=== PATIENT | male | born 1995 | race African-American/Black ===

== ENCOUNTER 2019-06-22 10:31 | Emergency (ER) | payer MEDICAID ==
[~2019-06-22] VITALS: Ht 177.8 cm; Wt 72.7 kg
[2019-06-22 10:42] VITALS: BP 118/76
[2019-06-22 11:27] LABS: BASOPHILS % (AUTO) 0.7 % (0.0-2.0); EOSINOPHILS % (AUTO) 5.6 % (1.0-6.0); HEMATOCRIT 44.3 % (41-53); LYMPHOCYTES # (AUTO) 0.9 K/uL (1.0-4.8); LYMPHOCYTES % (AUTO) 20.8 % (22.0-44.0); MEAN CORPUSCULAR HEMOGLOBIN 29.3 pg (26.0-34.0); MEAN CORPUSCULAR HGB CONC 33.8 G/dL (31.0-37.0); MEAN CORPUSCULAR VOLUME 86 fL (80-100); MONOCYTES # (AUTO) 0.9 K/uL (0.1-1.0); MONOCYTES % (AUTO) 19.7 % (2.0-9.0); NEUTROPHILS # (AUTO) 2.3 K/uL (1.8-7.7); NEUTROPHILS % (AUTO) 53.2 % (40.0-70.0); PLATELET COUNT (AUTO) 225 K/uL (150-450); RED BLOOD CELL COUNT(AUTO) 5.12 MIL/uL (4.50-5.90); RED CELL DISTRIBUTION WIDTH 12.4 % (11.5-14.5)
[2019-06-22 11:42] LABS: ANION GAP 9 mmol/L (8-16); CALCIUM, TOTAL 9.1 mg/dL (8.8-10.5); CARBON DIOXIDE 28 mmol/L (22-29); CHLORIDE 104 mmol/L (98-107); CREATININE 0.91 mg/dL (0.60-1.30); GLOMERULAR FILTR. RATE CALC > 60 mL/min (>60); GLUCOSE,RANDOM 92 mg/dL (70-110); POTASSIUM 4.1 mmol/L (3.5-5.1); SODIUM SERUM 141 mmol/L (136-145); UREA NITROGEN, BLOOD 19 mg/dL (7-18)
[2019-06-22 11:54] LABS: ALANINE AMINOTRANSFERASE 24 U/L (12-78); ALBUMIN 3.9 g/dL (3.4-5.0); ALKALINE PHOSPHATASE 77 U/L (46-116); ASPARTATE AMINOTRANSFERASE 21 U/L (15-37); BILIRUBIN,TOTAL 0.4 mg/dL (0.1-1.0); TOTAL PROTEIN, SERUM 7.3 g/dL (6.4-8.2)
== END 2019-06-22 12:35 | disposition home or self-care (01) ==
LOC: EMS 10:34
DX: F20.9 Schizophrenia, unspecified (principal)
CPT/HCPCS: 36415; 80053; 85025; 99285; G0480

== ENCOUNTER 2024-05-22 06:08 | Emergency (ER) | payer MEDICARE, MEDICAID ==
[~2024-05-22] VITALS: Ht 175.3 cm; Wt 76.0 kg
[~2024-05-22 06:08] MED LIST: RISP-32 PO
[2024-05-22 06:12] VITALS: TEMP 98.5
[2024-05-22 08:05] VITALS: BP 114/77; PULSE 61; RESP 16; O2SAT 98
== END 2024-05-22 08:15 | disposition home or self-care (01) ==
LOC: EMS 06:13
DX: B86 Scabies (principal); L29.9 Pruritus, unspecified; F20.9 Schizophrenia, unspecified; Z90.49 Acquired absence of other specified parts of digestive tract; Z59.19 Other inadequate housing
CPT/HCPCS: 99281; Z7502

== ENCOUNTER 2024-07-01 03:18 | Emergency (ER) | payer MEDICARE, MEDICAID ==
[~2024-07-01] VITALS: Ht 175.3 cm; Wt 77.3 kg
[~2024-07-01 03:18] MED LIST changes: -RISP-32 PO; +RISP3TAB77 PO
[2024-07-01 03:26] VITALS: BP 108/87; PULSE 68; RESP 16; TEMP 98; O2SAT 98
[2024-07-01] MEDS ORDERED: DIPH-1243 PO (03:57)
[2024-07-01] MEDS: DiphenhydrAMINE HCL 25 MG CAPSULE PO ONE (03:59)
== END 2024-07-01 04:30 | disposition home or self-care (01) ==
LOC: EMS 03:19
DX: L29.9 Pruritus, unspecified (principal); F20.9 Schizophrenia, unspecified; Z59.19 Other inadequate housing; Z90.49 Acquired absence of other specified parts of digestive tract; Z59.00 Homelessness unspecified
CPT/HCPCS: 99282; Z7502; Z7610

== ENCOUNTER 2024-10-14 15:42 | Emergency (ER) | payer MEDICARE, MEDICAID ==
[~2024-10-14] VITALS: Ht 175.3 cm; Wt 73.1 kg
[~2024-10-14 15:42] MED LIST changes: +DIPH-1243 PO
[2024-10-14 16:44] VITALS: TEMP 98.2
[2024-10-14 19:54] LABS: BASOPHILS % (AUTO) 0.5 % (0.0-2.0); EOSINOPHILS % (AUTO) 1.6 % (1.0-6.0); HEMATOCRIT 47.7 % (41-53); HEMOGLOBIN 15.6 g/dL (13.5-17.5); LYMPHOCYTES # (AUTO) 1.8 K/uL (1.0-4.8); LYMPHOCYTES % (AUTO) 32.5 % (22.0-44.0); MEAN CORPUSCULAR HEMOGLOBIN 28.5 pg (26.0-34.0); MEAN CORPUSCULAR HGB CONC 32.7 G/dL (31.0-37.0); MEAN CORPUSCULAR VOLUME 87 fL (80-100); MONOCYTES # (AUTO) 0.5 K/uL (0.1-1.0); MONOCYTES % (AUTO) 9.4 % (2.0-9.0); NEUTROPHILS # (AUTO) 3.2 K/uL (1.8-7.7); PLATELET COUNT (AUTO) 251 K/uL (150-450); RED BLOOD CELL COUNT(AUTO) 5.47 MIL/uL (4.50-5.90); RED CELL DISTRIBUTION WIDTH 12.5 % (11.5-14.5); WHITE BLOOD COUNT (AUTO) 5.7 K/uL (4.5-11.0)
[2024-10-14 20:02] LABS: ANION GAP 4 mmol/L (8-16); CALCIUM, TOTAL 9.6 mg/dL (8.8-10.5); CARBON DIOXIDE 35 mmol/L (22-29); CHLORIDE 102 mmol/L (98-107); CREATININE 0.85 mg/dL (0.60-1.30); GLOMERULAR FILTR. RATE CALC > 60 mL/min (>60); GLUCOSE,RANDOM 96 mg/dL (70-110); POTASSIUM 3.9 mmol/L (3.5-5.1); SODIUM SERUM 141 mmol/L (136-145); UREA NITROGEN, BLOOD 14 mg/dL (7-18)
[2024-10-14 22:00] VITALS: BP 126/78; PULSE 67; RESP 19; O2SAT 100
[2024-10-14] MEDS: AMOXICILLIN TRIHYDRATE 250 MG CAPSULE PO ONE (22:11)
== END 2024-10-14 22:25 | disposition admitted as inpatient to this hospital (09) ==
LOC: EMS 15:42
DX: K08.89 Other specified disorders of teeth and supporting structures (principal); M25.512 Pain in left shoulder; F20.9 Schizophrenia, unspecified; F12.90 Cannabis use, unspecified, uncomplicated; F17.210 Nicotine dependence, cigarettes, uncomplicated; Z90.49 Acquired absence of other specified parts of digestive tract; Z79.899 Other long term (current) drug therapy
CPT/HCPCS: 70450; 80048; 85025; 99284; 99285

== ENCOUNTER 2024-10-18 22:54 | Emergency (ER) | payer MEDICARE, MEDICAID ==
[~2024-10-18] VITALS: Ht 177.8 cm; Wt 92.0 kg
[~2024-10-18 22:54] MED LIST changes: +AMOX500C2 PO
[2024-10-18 22:56] VITALS: BP 134/89; PULSE 100; RESP 16; TEMP 99; O2SAT 100
[2024-10-19] MEDS: BENZTROPINE MESYLATE 2 MG TABLET PO ONE (01:10)
[2024-10-19] MEDS: DiphenhydrAMINE HCL 25 MG CAPSULE PO ONE (01:10)
[2024-10-19] MEDS: AMOXICILLIN TRIHYDRATE 250 MG CAPSULE PO ONE (01:10)
[2024-10-19] MEDS: RisperiDONE 1 MG TABLET PO ONE (01:11)
[2024-10-19] MEDS ORDERED: RISP3TAB77 PO (23:30)
[2024-10-19] MEDS ORDERED: BENZ2TAB84 PO (23:30)
[2024-10-19] MEDS ORDERED: HYDR50CA7 PO (23:31)
== END 2024-10-19 01:43 | disposition home or self-care (01) ==
LOC: EMS 22:55
DX: F20.0 Paranoid schizophrenia (principal); K08.89 Other specified disorders of teeth and supporting structures; F12.90 Cannabis use, unspecified, uncomplicated; F17.210 Nicotine dependence, cigarettes, uncomplicated; Z59.19 Other inadequate housing; Z90.49 Acquired absence of other specified parts of digestive tract; Z79.899 Other long term (current) drug therapy; Z91.199 Patient's noncompliance with other medical treatment and regimen due to unspecified reason
CPT/HCPCS: 99284; Z7502; Z7610

== ENCOUNTER 2024-10-19 22:07 | Emergency (ER) | payer MEDICARE, MEDICAID ==
[~2024-10-19] VITALS: Ht 172.7 cm; Wt 68.2 kg
[2024-10-19 22:15] VITALS: BP 147/79; PULSE 98; RESP 17; TEMP 97.8; O2SAT 98
[2024-10-19] MEDS ORDERED: RISP3TAB77 PO (23:30)
[2024-10-19] MEDS ORDERED: BENZ2TAB84 PO (23:30)
[2024-10-19] MEDS ORDERED: HYDR50CA7 PO (23:31)
[2024-10-19] MEDS: RisperiDONE 1 MG TABLET PO ONE (23:50)
[2024-10-19] MEDS: BENZTROPINE MESYLATE 2 MG TABLET PO ONE (23:50)
[2024-10-19] MEDS: DiphenhydrAMINE HCL 25 MG CAPSULE PO ONE (23:50)
== END 2024-10-20 00:16 | disposition home or self-care (01) ==
LOC: EMS 22:07
DX: F20.0 Paranoid schizophrenia (principal); F12.90 Cannabis use, unspecified, uncomplicated; F17.210 Nicotine dependence, cigarettes, uncomplicated; Z90.49 Acquired absence of other specified parts of digestive tract; Z79.899 Other long term (current) drug therapy
CPT/HCPCS: 99284; Z7502; Z7610

== ENCOUNTER 2024-10-25 21:21 | Emergency (ER) | payer MEDICARE, MEDICAID ==
[~2024-10-25] VITALS: Ht 172.7 cm; Wt 92.0 kg
[~2024-10-25 21:21] MED LIST changes: +BENZ2TAB84 PO; -DIPH-1243 PO; +HYDR50CA7 PO
[2024-10-25 21:26] VITALS: TEMP 98
[2024-10-26] MEDS: LORazepam 2 MG TABLET PO ONE (02:46)
[2024-10-26] MEDS: DiphenhydrAMINE HCL 25 MG CAPSULE PO ONE (02:46)
[2024-10-26 03:14] VITALS: BP 127/88; PULSE 73; RESP 18; O2SAT 99
[2024-10-26] MEDS ORDERED: SELE120S2 TP (03:40)
== END 2024-10-26 04:11 | disposition home or self-care (01) ==
LOC: EMS 21:21
DX: B36.0 Pityriasis versicolor (principal); F12.90 Cannabis use, unspecified, uncomplicated; F20.9 Schizophrenia, unspecified; F41.9 Anxiety disorder, unspecified; F17.210 Nicotine dependence, cigarettes, uncomplicated; Z88.8 Allergy status to other drugs, medicaments and biological substances; Z90.49 Acquired absence of other specified parts of digestive tract; Z79.899 Other long term (current) drug therapy
CPT/HCPCS: 99283

== ENCOUNTER 2024-10-30 00:15 | Emergency (ER) | payer MEDICARE, MEDICAID ==
[~2024-10-30] VITALS: Ht 185.4 cm; Wt 81.8 kg
[~2024-10-30 00:15] MED LIST changes: +SELE120S2 TP
[2024-10-30 00:25] VITALS: BP 125/85; PULSE 98; RESP 18; TEMP 99.4; O2SAT 99
[2024-10-30] MEDS ORDERED: AMOX-457 PO (06:52)
[2024-10-30] MEDS ORDERED: CORTSUSP AD (06:52)
[2024-10-30] MEDS ORDERED: HYDR-4584 PO (14:10)
[2024-10-30] MEDS ORDERED: ZIPR20CA38 PO (14:10)
[2024-10-30] MEDS ORDERED: SUMA50TA17 PO (14:10)
== END 2024-10-30 02:28 | disposition left against medical advice (07) ==
LOC: EMS 00:16
DX: H92.03 Otalgia, bilateral (principal); Z53.21 Procedure and treatment not carried out due to patient leaving prior to being seen by health care provider

== ENCOUNTER 2024-10-30 02:45 | Emergency (ER) | payer MEDICARE, MEDICAID ==
[~2024-10-30] VITALS: Ht 185.4 cm; Wt 81.8 kg
[2024-10-30 02:51] VITALS: TEMP 99.1
[2024-10-30] MEDS ORDERED: AMOX-457 PO (06:52)
[2024-10-30] MEDS ORDERED: CORTSUSP AD (06:52)
[2024-10-30 06:56] VITALS: BP 121/79; PULSE 89; RESP 20; O2SAT 99
[2024-10-30] MEDS ORDERED: HYDR-4584 PO (14:10)
[2024-10-30] MEDS ORDERED: SUMA50TA17 PO (14:10)
[2024-10-30] MEDS ORDERED: ZIPR20CA38 PO (14:10)
== END 2024-10-30 07:19 | disposition home or self-care (01) ==
LOC: EMS 02:50
DX: K04.7 Periapical abscess without sinus (principal); H60.501 Unspecified acute noninfective otitis externa, right ear; H66.91 Otitis media, unspecified, right ear; F12.90 Cannabis use, unspecified, uncomplicated; F20.9 Schizophrenia, unspecified; F17.210 Nicotine dependence, cigarettes, uncomplicated; Z88.8 Allergy status to other drugs, medicaments and biological substances; Z90.49 Acquired absence of other specified parts of digestive tract; Z79.899 Other long term (current) drug therapy
CPT/HCPCS: 99283; Z7502

== ENCOUNTER 2024-10-30 09:02 | Inpatient (IN) | payer MEDICARE, MEDICAID ==
[~2024-10-30] VITALS: Ht 175.3 cm; Wt 77.8 kg
[2024-10-30 03:45] VITALS: BP 140/87; PULSE 97; RESP 18; TEMP 97.2; O2SAT 98
[~2024-10-30 09:02] MED LIST changes: +AMOX-457 PO; +CORTSUSP AD
[2024-10-30 10:07] LABS: COVID AG,FIA SOURCE NPH
[2024-10-30 10:08] LABS: BASOPHILS % (AUTO) 0.5 % (0.0-2.0); EOSINOPHILS % (AUTO) 0.5 % (1.0-6.0); HEMOGLOBIN 15.1 g/dL (13.5-17.5); LYMPHOCYTES # (AUTO) 1.3 K/uL (1.0-4.8); LYMPHOCYTES % (AUTO) 13.8 % (22.0-44.0); MEAN CORPUSCULAR HEMOGLOBIN 28.1 pg (26.0-34.0); MEAN CORPUSCULAR HGB CONC 33.5 G/dL (31.0-37.0); MEAN CORPUSCULAR VOLUME 84 fL (80-100); MONOCYTES # (AUTO) 0.9 K/uL (0.1-1.0); MONOCYTES % (AUTO) 9.3 % (2.0-9.0); NEUTROPHILS # (AUTO) 7.4 K/uL (1.8-7.7); NEUTROPHILS % (AUTO) 75.9 % (40.0-70.0); PLATELET COUNT (AUTO) 261 K/uL (150-450); RED BLOOD CELL COUNT(AUTO) 5.36 MIL/uL (4.50-5.90); RED CELL DISTRIBUTION WIDTH 12.4 % (11.5-14.5); WHITE BLOOD COUNT (AUTO) 9.7 K/uL (4.5-11.0)
[2024-10-30 10:17] LABS: CHLORIDE 100 mmol/L (98-107); CREATININE 1.03 mg/dL (0.60-1.30); GLOMERULAR FILTR. RATE CALC > 60 mL/min (>60); GLUCOSE,RANDOM 96 mg/dL (70-110); POTASSIUM 3.8 mmol/L (3.5-5.1); SODIUM SERUM 137 mmol/L (136-145); UREA NITROGEN, BLOOD 15 mg/dL (7-18)
[2024-10-30 10:23] LABS: ANION GAP 6 mmol/L (8-16); CARBON DIOXIDE 31 mmol/L (22-29)
[2024-10-30 12:59] LABS: SARS-COV2 (COVID) ANTIGEN,FIA Negative (Negative)
[2024-10-30] MEDS ORDERED: HYDR-4584 PO (14:10)
[2024-10-30] MEDS ORDERED: SUMA50TA17 PO (14:10)
[2024-10-30] MEDS ORDERED: ZIPR20CA38 PO (14:10)
[2024-10-30] MEDS: AMOX TR/POT CLAV 875 MG/125 MG TABLET PO ONE (14:36)
[2024-10-30] MEDS: HYDROCODONE/ACETAMINOPHEN 5-325 MG TABLET PO ONE (14:37)
[2024-10-30] MEDS: NEOMYCIN/POLYMYXIN B/HYDROCORT 10 ML OTIC SOLUTION AD ONE (15:00)
[2024-10-30 16:15] LABS: APPEARANCE,URINE CLEAR (CLEAR); BILIRUBIN,URINE NEGATIVE (NEGATIVE); COLOR,URINE YELLOW (YELLOW); GLUCOSE, URINE (UA) NEGATIVE (NEGATIVE); KETONES,URINE NEGATIVE (NEGATIVE); LEUKOCYTE ESTERASE ,URINE NEGATIVE (NEGATIVE); NITRATE,URINE NEGATIVE (NEGATIVE); OCCULT BLOOD,URINE NEGATIVE (NEGATIVE); PH,URINE 6.5 (5.0-8.0); PH,URINE DRUG SCREEN 6.5 (5.0-8.0); PROTEIN,URINE TRACE mg/dL (NEGATIVE); UROBILINOGEN,URINE <=1.0 mg/dL (<=1.0)
[2024-10-30 16:20] LABS: ALCOHOL, URINE DRUG SCREEN NEGATIVE (NEGATIVE); AMPHET/METH SCREEN,URINE NEGATIVE (NEGATIVE); BARBITURATE SCREEN, URINE NEGATIVE (NEGATIVE); BENZODIAZEPINES SCREEN,URINE NEGATIVE (NEGATIVE); CANNABINOID SCREEN,URINE NEGATIVE (NEGATIVE); COCAINE SCREEN,URINE NEGATIVE (NEGATIVE); METHADONE SCREEN, URINE NEGATIVE (NEGATIVE); OPIATE SCREEN,URINE NEGATIVE (NEGATIVE); PHENCYCLIDINE SCREEN,URINE NEGATIVE (NEGATIVE)
[2024-10-30] MEDS ORDERED: ZOLPIDEM TARTRATE 10 MG TABLET PO PRN (17:15)
[2024-10-30 23:00] VITALS: BP 140/87; PULSE 97; RESP 18; TEMP 97.2; O2SAT 98
[2024-10-31] MEDS ORDERED: ONDANSETRON 4 MG TABLET PO PRN (03:00)
[2024-10-31] MEDS ORDERED: LOPERAMIDE HCL 2 MG CAPSULE PO PRN (03:00)
[2024-10-31] MEDS ORDERED: OMEPRAZOLE 20 MG CAPSULE PO PRN (03:00)
[2024-10-31] MEDS ORDERED: PETROLATUM,WHITE 28 GM JELLY TP PRN (03:00)
[2024-10-31] MEDS ORDERED: CloNIDine HCL 0.1 MG TABLET PO PRN (03:00)
[2024-10-31] MEDS ORDERED: ALBUTEROL SULFATE HFA 90 MCG/PUFF 8 GM INHALER IH PRN (03:00)
[2024-10-31] MEDS ORDERED: BENZOCAINE/MENTHOL [CEPACOL] LOZENGE PO PRN (03:00)
[2024-10-31] MEDS ORDERED: DOCUSATE SODIUM 100 MG CAPSULE PO PRN (03:00)
[2024-10-31] MEDS ORDERED: BACITRACIN 28 GM OINTMENT TP PRN (03:00)
[2024-10-31 03:40] VITALS: BP 129/86; PULSE 89; RESP 18; TEMP 97.9; O2SAT 98
[2024-10-31] MEDS: IBUPROFEN 600 MG TABLET PO PRN (03:48)
[2024-10-31 04:48] VITALS: RESP 19
[2024-10-31] MEDS ORDERED: SUMAtriptan SUCCINATE 25 MG TABLET PO PRN (06:15)
[2024-10-31 08:05] VITALS: BP 125/91; PULSE 81; RESP 17; TEMP 97; O2SAT 99
[2024-10-31] MEDS: BENZOCAINE 10% 7 GM GEL TP PRN (08:05)
[2024-10-31] MEDS: AMOX TR/POT CLAV 875 MG/125 MG TABLET PO SCH (08:05)
[2024-10-31] MEDS: BENZTROPINE MESYLATE 2 MG TABLET PO SCH ×2 (08:05→17:24)
[2024-10-31] MEDS: NEOMYCIN/POLYMYXIN B/HYDROCORT 10 ML OTIC SUSPENSION AD SCH (08:06)
[2024-10-31 08:50] LABS: BASOPHILS % (AUTO) 0.5 % (0.0-2.0); EOSINOPHILS % (AUTO) 0.8 % (1.0-6.0); HEMATOCRIT 41.9 % (41-53); HEMOGLOBIN 14.1 g/dL (13.5-17.5); LYMPHOCYTES # (AUTO) 1.9 K/uL (1.0-4.8); LYMPHOCYTES % (AUTO) 23.2 % (22.0-44.0); MEAN CORPUSCULAR HEMOGLOBIN 28.3 pg (26.0-34.0); MEAN CORPUSCULAR HGB CONC 33.6 G/dL (31.0-37.0); MEAN CORPUSCULAR VOLUME 84 fL (80-100); MONOCYTES # (AUTO) 0.9 K/uL (0.1-1.0); MONOCYTES % (AUTO) 10.7 % (2.0-9.0); NEUTROPHILS # (AUTO) 5.3 K/uL (1.8-7.7); NEUTROPHILS % (AUTO) 64.8 % (40.0-70.0); PLATELET COUNT (AUTO) 241 K/uL (150-450); RED BLOOD CELL COUNT(AUTO) 4.99 MIL/uL (4.50-5.90); RED CELL DISTRIBUTION WIDTH 12.3 % (11.5-14.5); WHITE BLOOD COUNT (AUTO) 8.1 K/uL (4.5-11.0)
[2024-10-31 09:05] VITALS: BP 118/81; PULSE 79; RESP 17; TEMP 97.6
[2024-10-31 09:05] LABS: HEMOGLOBIN A1C 5.4 % (3.8-5.6)
[2024-10-31] MEDS: SELENIUM SULFIDE 2.5% LOTION 120 ML BOTTLE TP SCH (09:11)
[2024-10-31 09:13] LABS: ALANINE AMINOTRANSFERASE 21 U/L (12-78); ALBUMIN 3.6 g/dL (3.4-5.0); ALKALINE PHOSPHATASE 75 U/L (46-116); ANION GAP 8 mmol/L (8-16); ASPARTATE AMINOTRANSFERASE 17 U/L (15-37); BILIRUBIN,TOTAL 0.8 mg/dL (0.1-1.0); CARBON DIOXIDE 31 mmol/L (22-29); CHLORIDE 98 mmol/L (98-107); CHOL/HDL RATIO 1.8 (4.2-7.3); CHOLESTEROL 109 mg/dL (131-200); CREATININE 1.03 mg/dL (0.60-1.30); FREE T4 (FREE THYROXINE) 0.86 ng/dL (0.76-1.46); GLOMERULAR FILTR. RATE CALC > 60 mL/min (>60); GLUCOSE,RANDOM 108 mg/dL (70-110); HDL CHOLESTEROL 59 mg/dL (40-60); LDL CHOL (CALC.) 43 mg/dL (0-130); POTASSIUM 3.8 mmol/L (3.5-5.1); SODIUM SERUM 137 mmol/L (136-145); T4 (THYROXINE) 7.3 mcg/dL (4.7-13.3); TOTAL PROTEIN, SERUM 7.3 g/dL (6.4-8.2); TRIGLYCERIDES 33 mg/dL (15-150); UREA NITROGEN, BLOOD 16 mg/dL (7-18)
[2024-10-31 10:34] VITALS: BP 125/94; PULSE 81; RESP 17; TEMP 97; O2SAT 99
[2024-10-31] MEDS: RisperiDONE 3 MG TABLET PO SCH (17:00)
[2024-10-31 22:05] VITALS: BP 114/90; PULSE 97; RESP 17; TEMP 97.3; O2SAT 99
[2024-11-01 00:58] VITALS: BP 126/86; PULSE 74; RESP 18; O2SAT 100
[2024-11-01 09:31] VITALS: BP 112/82; PULSE 63; RESP 18; TEMP 97.9; O2SAT 96
[2024-11-01 22:27] VITALS: BP 113/68; PULSE 66; RESP 16; TEMP 97.3; O2SAT 100
[2024-11-02 08:36] VITALS: BP 112/77; PULSE 66; RESP 16; TEMP 97.2; O2SAT 98
[2024-11-02 20:42] VITALS: BP 138/78; PULSE 66; RESP 16; TEMP 97.2
[2024-11-03 01:52] VITALS: BP 133/73; PULSE 72; RESP 16; TEMP 97.3
[2024-11-03 10:01] VITALS: BP 122/96; PULSE 67; RESP 17; TEMP 96.9; O2SAT 100
[2024-11-03 21:20] VITALS: BP 115/67; PULSE 63; RESP 16; TEMP 97.7; O2SAT 97
[2024-11-03 23:15] VITALS: BP 120/80; PULSE 70; RESP 18; TEMP 98; O2SAT 98
[2024-11-04 00:18] VITALS: RESP 18; O2SAT 98
[2024-11-04 15:03] VITALS: BP 112/84; PULSE 78; RESP 18; TEMP 97.3; O2SAT 99
[2024-11-04 21:17] VITALS: BP 152/92; PULSE 67; RESP 18; TEMP 97.1; O2SAT 99
[2024-11-04] MEDS: MAG HYDROX/ALUMINUM HYD/SIMETH ES 30 ML SUSPENSION UDCUP PO PRN (23:56)
[2024-11-05] MEDS: MAGNESIUM HYDROXIDE SUSPENSION 30 ML UDCUP PO PRN (00:39)
[2024-11-05 15:22] VITALS: BP 115/76; PULSE 81; RESP 18; TEMP 97.6; O2SAT 98
[2024-11-05 21:28] VITALS: BP 107/64; PULSE 60; RESP 18; TEMP 97.2
[2024-11-06] MEDS: TERBINAFINE HCL 1% 30 GM CREAM TP SCH (08:29)
[2024-11-06 08:57] VITALS: BP 119/89; PULSE 60; RESP 17; TEMP 97.8; O2SAT 100
[2024-11-06 16:55] VITALS: BP 111/79; PULSE 79; RESP 18; TEMP 97.5
[2024-11-06 17:55] VITALS: BP 121/86; PULSE 68; RESP 18; TEMP 97
[2024-11-06 21:23] VITALS: RESP 18
[2024-11-07 11:25] VITALS: BP 125/79; PULSE 66; RESP 17; TEMP 97.8; O2SAT 98
[2024-11-07 20:06] VITALS: BP 130/90; PULSE 82; RESP 16; TEMP 97.3; O2SAT 99
[2024-11-08 08:07] VITALS: BP 106/61; PULSE 77; RESP 16; TEMP 97.6; O2SAT 100
[2024-11-08 20:44] VITALS: RESP 16
[2024-11-09 10:10] VITALS: BP 105/77; PULSE 68; RESP 16; TEMP 97.9; O2SAT 98
[2024-11-10 09:43] VITALS: BP 128/64; PULSE 63; RESP 18; TEMP 97.6; O2SAT 99
[2024-11-10 22:51] VITALS: BP 137/89; PULSE 62; RESP 18; TEMP 97.3; O2SAT 96
[2024-11-11 09:29] VITALS: BP 135/94; PULSE 80; RESP 18; TEMP 97.8; O2SAT 100
[2024-11-11 20:08] VITALS: BP 110/65; PULSE 72; RESP 18; TEMP 97.3; O2SAT 100
[2024-11-12 08:26] VITALS: BP 111/95; PULSE 65; RESP 17; TEMP 97.6; O2SAT 99
[2024-11-12 21:32] VITALS: BP 121/71; PULSE 77; RESP 18; TEMP 97.3; O2SAT 100
[2024-11-13 14:27] VITALS: BP 125/106; PULSE 62; RESP 16; TEMP 97.8; O2SAT 97
[2024-11-13 21:55] VITALS: BP 98/55; PULSE 76; RESP 18; TEMP 98.2; O2SAT 97
[2024-11-14 08:52] VITALS: BP 114/85; PULSE 100; RESP 18; TEMP 98.1; O2SAT 100
[2024-11-14 21:24] VITALS: BP 120/64; PULSE 81; RESP 18; TEMP 97.7; O2SAT 98
[2024-11-15 08:24] VITALS: BP 104/64; PULSE 65; RESP 16; TEMP 97.2; O2SAT 97
[2024-11-15] MEDS: LORazepam 2 MG TABLET PO PRN (20:45)
[2024-11-15 21:24] VITALS: RESP 18
[2024-11-16 08:15] VITALS: BP 128/80; PULSE 89; RESP 18; TEMP 97.8; O2SAT 100
[2024-11-16] MEDS: HYDROCODONE/ACETAMINOPHEN 5-325 MG TABLET PO PRN (08:20)
[2024-11-16 08:30] VITALS: BP 128/80; PULSE 89; RESP 18; TEMP 97.8; O2SAT 100
[2024-11-16] MEDS: NEOMYCIN/POLYMYXIN B/HYDROCORT 10 ML OTIC SOLUTION AD SCH (12:06)
[2024-11-16 21:19] VITALS: BP 110/77; PULSE 88; RESP 19; TEMP 97.6; O2SAT 99
[2024-11-17 08:30] VITALS: BP 113/64; PULSE 70; RESP 20; TEMP 97.3; O2SAT 100
[2024-11-17 20:49] VITALS: BP 100/60; PULSE 79; RESP 18; TEMP 97.2; O2SAT 98
[2024-11-17 21:10] VITALS: BP 108/70; PULSE 81; RESP 19; TEMP 97.6; O2SAT 99
[2024-11-17 22:10] VITALS: BP 111/70; PULSE 81; RESP 19; TEMP 98; O2SAT 97
[2024-11-17 22:13] VITALS: RESP 18
[2024-11-18 10:39] VITALS: BP 118/78; PULSE 64; RESP 18; TEMP 97.3; O2SAT 100
[2024-11-18 21:16] VITALS: BP 138/59; PULSE 83; RESP 18; TEMP 97.8; O2SAT 100
[2024-11-19 03:55] VITALS: BP 127/68; PULSE 76; RESP 18; TEMP 97.9; O2SAT 100
[2024-11-19] MEDS ORDERED: CORTSOL AD (11:38)
[2024-11-19 14:38] VITALS: BP 126/70; PULSE 77; RESP 17; TEMP 97.3; O2SAT 99
[2024-11-19] MEDS: ACETAMINOPHEN 325 MG TABLET PO PRN (14:38)
[2024-11-19 15:38] VITALS: BP 125/69; PULSE 74; RESP 18; TEMP 97.2; O2SAT 99
[2024-11-19 21:48] VITALS: BP 101/61; PULSE 57; RESP 18; TEMP 97.5; O2SAT 99
[2024-11-20 01:04] VITALS: BP 119/70; PULSE 65; RESP 18; TEMP 97.4; O2SAT 99
[2024-11-20 02:04] VITALS: RESP 18
[2024-11-20 08:35] VITALS: BP 132/82; PULSE 77; RESP 18; TEMP 97.6; O2SAT 97
== END 2024-11-20 17:34 | disposition home or self-care (01) | DRG 885 ==
LOC: EMS 09:04 → EDBEDREQ 16:18 → 3EC 22:10
PROVIDERS: ADMIT Psychiatry & Neurology Psychiatry; ATTEND Psychiatry & Neurology Psychiatry
PROC: GZHZZZZ Group Psychotherapy (ICD-10-PCS; principal; 2024-11-05)
PROC: GZ51ZZZ Individual Psychotherapy, Behavioral (ICD-10-PCS; 2024-11-05)
DX: F25.9 Schizoaffective disorder, unspecified (principal); H60.501 Unspecified acute noninfective otitis externa, right ear; K04.7 Periapical abscess without sinus; F17.210 Nicotine dependence, cigarettes, uncomplicated; F41.9 Anxiety disorder, unspecified; G43.909 Migraine, unspecified, not intractable, without status migrainosus; Z20.822 Contact with and (suspected) exposure to COVID-19; G47.00 Insomnia, unspecified; F12.90 Cannabis use, unspecified, uncomplicated; K59.00 Constipation, unspecified; Z91.148 Patient's other noncompliance with medication regimen for other reason; Z88.1 Allergy status to other antibiotic agents
CPT/HCPCS: 80048; 80053; 80061; 80307; 81003; 83036; 84436; 84439; 85025; 87081; 99285; G0480